=== PATIENT | male | born 1990 | race Caucasian/White ===

== ENCOUNTER 2016-10-31 05:48 | Inpatient (IN) ==
[2016-10-31] MEDS ORDERED: 0.9 % Sodium Chloride 1,000 ML IVC ONE ×2 (06:24→08:05)
[2016-10-31] MEDS ORDERED: Ondansetron 4 MG/2 ML VIAL IVP ONE (06:25)
[2016-10-31 06:52] LABS: Alanine Aminotransferase 184 Units/L (0-55); Albumin 4.9 g/dL (3.5-5.0); Albumin/Globulin Ratio 1.3 (1.1-2.2); Alkaline Phosphatase 85 Units/L (38-126); Aspartate Amino Transferase 118 Units/L (5-34); BUN/Creatinine Ratio 9 (6-26); Bilirubin,Direct 0.5 mg/dL (0.0-0.5); Bilirubin,Indirect 0.7 mg/dL (0.0-1.2); Bilirubin,Total 1.2 mg/dL (0.2-1.2); Blood Urea Nitrogen 29 mg/dL (8-26); Carbon Dioxide 18 mEq/L (19-29); Chloride 96 mEq/L (98-109); Globulin 3.8 g/dL (2.4-3.5); Glucose 111 mg/dL (70-99); Osmolality,Calculated 279 (280-300); Sodium 131 mEq/L (136-145); Total Protein 8.7 g/dL (6.0-8.3); eGFR For African Americans 29 (> 60); eGFR For Non-African Americans 24 (> 60)
[2016-10-31 07:09] LABS: Acetaminophen < 1.0 mcg/mL (10-30); Ethanol < 10 mg/dL (0-10); Salicylate < 5.0 mg/dL (15-30)
[2016-10-31] MEDS ORDERED: *HR* LORazepam 2 MG/ML VIAL IVP ONE (07:25)
[2016-10-31 08:15] LABS: Basophils # 0.1 K/mcL (0.0-0.2); Basophils % 0.4 %; Eosinophils % 0.1 %; Hematocrit 45.1 % (37.5-50.1); Hemoglobin 16.1 g/dL (12.9-16.9); Immature Granulocytes % 0.4 % (0-4); Immature Platelets 10.4 % (1.1-6.1); Lymphocytes # 2.7 K/mcL (0.6-4.6); Lymphocytes % 18.9 %; Mean Corpuscular HGB Conc 35.7 g/dL (31.6-35.5); Mean Corpuscular Hemoglobin 27.9 pg (28.0-33.3); Mean Platelet Volume 11.1 fL (9.4-12.4); Monocytes # 1.5 K/mcL (0.0-1.3); Monocytes % 10.5 %; Platelet Count 236 K/mcL (140-400); Red Blood Count 5.78 M/mcL (4.19-5.50); Red Cell Distribution Width 13.2 % (11.5-14.5); Segmented Neutrophils % 69.7 %
--- NOTE | 2016-10-31 09:32 | Emergency Department Note ---
START Narrative - START START: I examined this patient and my medical decision-making was reviewed with the BOOM STICK MAN/PA/Advanced Practice Nurse/Resident Physician. I agree with the documented findings, disposition and treatment plan as described except to the extent set forth below. Patient emergency department with abdominal pain and altered mental status. Patient called a friend because he is on abdominal pain. He was brought here. On my exam he is laying in bed sleeping with his legs drawn up to his chest. Plan. Patient had acute renal failure. Likely from his polysubstance abuse. We will admit to medicine. IV hydration.
--- NOTE | 2016-10-31 09:47 | Emergency Department Note ---
Disposition Clinical Impression: Abdominal pain, ARF (acute renal failure), Polysubstance abuse Disposition: Admitted As Inpatient Condition: Fair Referrals: NO,PCP [Primary Care Provider] - Forms: Work/School Release, ED Satisfaction Letter Time of Disposition: 10:34 General Adult HPI - General Chief complaint: ED Abdominal Pain Stated complaint: abdominal pain and back pain Time Seen by Provider: 10/31/16 06:23 Source: patient Mode of arrival: private vehicle Limitations: no limitations Nursing Notes Reviewed: Yes Vital Signs Reviewed: Yes - History of Present Illness HPI Narrative: 26-year-old male presents to the emergency department with multiple complaints. Patient states that he has been having intermittent abdominal pain, as well as currently being intoxicated on multiple substances. Patient states that last night/this morning he used methamphetamines, cocaine, Xanax, alcohol, marijuana and "made on something but are not really sure what else." He denies any chest pain or shortness of breath. He does have some mild agitation and anxiety. Patient states that he has been a long-standing drug abuser. Onset (ago): hour(s) Location: abdomen Radiation: abdomen Pain Severity: moderate, severe Pain Scale: 8 Quality: aching, dull Consistency: intermittent Improves with: nothing Worsens with: nothing Associated symptoms: Reports: fever/chills Treatments Prior to Arrival: none - Related Data Home Medications Medication Instructions Recorded Confirmed Unable To Obtain [Unable to Obtain] 10/31/16 10/31/16 Allergies Allergy/AdvReac Type Severity Reaction Status Date / Time No Known Allergies Allergy Verified 10/31/16 08:50 All systems ED: reviewed and negative except as stated. Constitutional: Denies: fever, chills Cardiovascular: Denies: chest pain Respiratory: Denies: dyspnea Gastrointestinal: Reports: abdominal pain. Denies: nausea, vomiting Musculoskeletal: Denies: back pain, neck pain Integumentary: Denies: rash, abrasion Neurological: Denies: headache Psychiatric: Reports: anxiety. Denies: depression, suicidal thoughts, homicidal thoughts, auditory hallucinations, visual hallucinations Past Medical History - Past Medical History Attestation: Yes The following information was validated with the patient. Source: patient, obtained from family, nursing notes reviewed Medical history: Reports: other - Social History Smoking Status: Current every day smoker Alcohol use: Reports: none Drug use: Reports: cocaine, other Physical Exam - General Limitations: no limitations General appearance: alert, in no apparent distress - Head Head exam: atraumatic, normocephalic, normal inspection - Eye Eye exam: Present: normal appearance, PERRL - Neck Neck exam: Present: normal inspection, full ROM, trachea midline - Chest Chest inspection: Present: normal inspection, symmetric chest wall rise - Respiratory Respiratory exam: Present: normal lung sounds bilaterally - Cardiovascular Cardiovascular exam: Present: regular rate, normal rhythm, normal heart sounds - Abdominal Exam Abdominal exam: Present: soft, Non-Tender, normal bowel sounds. Absent: distention, guarding, rebound, rigidity - Extremities Exam Extremities exam: Present: normal inspection, full ROM. Absent: tenderness, pedal edema - Expanded Lower Extremity Exam Gait: observed and normal - Back Exam Back exam: Present: normal inspection, full ROM. Absent: tenderness - Neurological Exam Neurological exam: Present: alert, oriented X3 - Psychiatric Psychiatric exam: Present: anxious. Absent: homicidal ideation, suicidal ideation - Skin Skin exam: Present: warm, dry, intact, normal color Course Course Narrative: Patient seems extremely anxious and is pacing around the room during my history and physical exam. - Reevaluation(s) Reevaluation #1: Patient resting comfortably after administration of 1 mg Ativan. Labs show acute renal failure. Second liter of fluids is currently being administered. Plan to admit to medicine with possible consult nephrology. Time: 09:49 Vital Signs Temperature 0 F L 10/31/16 05:53 Pulse Rate 0 10/31/16 05:53 Respiratory Rate 18 10/31/16 05:53 Blood Pressure 0/0 10/31/16 05:53 O2 Sat by Pulse Oximetry 0 10/31/16 05:53 Temperature 0 F L 10/31/16 05:53 Pulse Rate 83 10/31/16 10:05 Respiratory Rate 18 10/31/16 10:05 Blood Pressure 117/72 10/31/16 10:05 O2 Sat by Pulse Oximetry 100 10/31/16 10:05 Oxygen Delivery Oxygen Delivery Room Air Medical Decision Making - Lab Data Lab results reviewed: Yes I reviewed the patient's lab results. Result diagrams: 10/31/16 06:30 10/31/16 06:30 Lab Results 10/31/16 10/31/16 Range/Units 06:30 06:30 WBC 14.3 H (4.3-11.1) K/mcL RBC 5.78 H (4.19-5.50) M/mcL Hgb 16.1 (12.9-16.9) g/dL Hct 45.1 (37.5-50.1) % MCV 78.0 L (83.0-100.0) fL MCH 27.9 L (28.0-33.3) pg MCHC 35.7 H (31.6-35.5) g/dL RDW 13.2 (11.5-14.5) % Plt Count 236 (140-400) K/mcL MPV 11.1 (9.4-12.4) fL Immature Gran % 0.4 (0-4) % Seg Neutrophils % 69.7 % Lymphocytes % 18.9 % Monocytes % 10.5 % Eosinophils % 0.1 % Basophils % 0.4 % Neutrophils # 10.0 H (1.6-8.9) K/mcL Lymphocytes # 2.7 (0.6-4.6) K/mcL Monocytes # 1.5 H (0.0-1.3) K/mcL Eosinophils # 0.0 (0.0-0.6) K/mcL Basophils # 0.1 (0.0-0.2) K/mcL Immature Plt Fraction 10.4 H (1.1-6.1) % Sodium 131 L (136-145) mEq/L Potassium 4.0 (3.5-4.5) mEq/L Chloride 96 L (98-109) mEq/L Carbon Dioxide 18 L (19-29) mEq/L BUN 29 H (8-26) mg/dL Creatinine 3.18 H (0.72-1.25) mg/dL Est GFR ( Amer) 29 L (> 60) Est GFR (Non-Af Amer) 24 L (> 60) BUN/Creatinine Ratio 9 (6-26) Glucose 111 H (70-99) mg/dL Calculated Osmolality 279 L (280-300) Calcium 10.0 (8.6-10.8) mg/dL Total Bilirubin 1.2 (0.2-1.2) mg/dL Direct Bilirubin 0.5 (0.0-0.5) mg/dL Indirect Bilirubin 0.7 (0.0-1.2) mg/dL AST 118 H (5-34) Units/L ALT 184 H (0-55) Units/L Alkaline Phosphatase 85 (38-126) Units/L Serum Total Protein 8.7 H (6.0-8.3) g/dL Albumin 4.9 (3.5-5.0) g/dL Globulin 3.8 H (2.4-3.5) g/dL Albumin/Globulin Ratio 1.3 (1.1-2.2) Salicylates < 5.0 L (15-30) mg/dL Acetaminophen < 1.0 L (10-30) mcg/mL Ethyl Alcohol < 10 (0-10) mg/dL - Radiology Data Radiology results reviewed: Yes I reviewed the patient's radiology results.
[2016-10-31 11:01] LABS: Amphetamine Screen,Urine Positive ng/mL (Cutoff=1000); Barbiturate Screen,Urine Negative ng/mL (Cutoff=200); Benzodiazepines Screen,Urine Negative ng/mL (Cutoff=200); Cannabinoid Screen,Urine Negative ng/mL (Cutoff = 50); Cocaine Screen,Urine Positive ng/mL (Cutoff= 300); Opiate Screen,Urine Negative ng/mL (Cutoff=300); Phencyclidine Screen,Urine Negative ng/mL (Cutoff=25)
[2016-10-31 11:02] LABS: Bilirubin,Urine Negative (Negative); Blood,Urine Negative (Negative); Clarity,Urine Cloudy (Clear); Color,Urine Yellow (Yellow); Glucose,Urine (UA) Normal (Normal); Ketones,Urine Negative (Negative); Leukocyte Esterase,Urine Negative (Negative); Nitrite,Urine Negative (Negative); PH,Urine 5.5 pH Units (5.0-8.0); Protein,Urine Negative (Neg-Trace); Specific Gravity,Urine 1.012 (1.010-1.025); Urobilinogen,Urine Normal (Normal)
[2016-10-31 11:04] LABS: Bacteria,Urine None Seen per hpf (None-Few); Squamous Epithelial Cell,Urine Many per lpf (None-Few)
[2016-10-31] MEDS ORDERED: *HR* LORazepam 2 MG/ML VIAL IVP PRN (11:53)
--- NOTE | 2016-10-31 12:02 | Internal Med History&Physical ---
Date of Encounter: 10/31/16 Time of Encounter: 11:59 Assessment and Plan (1) Abdominal pain Current visit: Yes Status: Acute I will get to view x-ray looking for free air. He is not peritonitic on exam. He has some voluntary guarding. Qualifiers: Qualified Code(s): R10.9 - Unspecified abdominal pain (2) ARF (acute renal failure) Current visit: Yes Status: Acute 2L of NS were given. Continue NS 150 ml/h. Follow urine output. Renal ultrasound. I will also check CPK to look for rhabdomyolysis. Qualifiers: Qualified Code(s): N17.9 - Acute kidney failure, unspecified (3) Polysubstance abuse Current visit: Yes Status: Acute He admits to injection and snorting of cocaine and methamphetamine. Continuous telemetry monitoring. 12 lead electrocardiogram will be checked now. (4) Acute psychosis Current visit: Yes Status: Acute Due to amphetamines and cocaine. I will give the patients Ativan 1 mg IV Q2 hours as needed. Sitter will be present at bedside. psych evaluation on DC Internal Medicine - H&P: HPI Chief complaint: abdomial pain History of present illness: Mr. Dodson is a 26 year old male presents the emergency room today with the main complain of abdominal pain and confusion. Patient was behaving psychotic with delusions and hallucinations. He was restless agitated. He admitted to taking amphetamine and cocaine last night he usually takes them by injection and snorting. Patient has been also complaining of diffuse abdominal pain. No further history could be obtained given patient mental status. He denies any chest pain, shortness of breath. He denied any abdominal pain during my interview. He described his pain and spasms. No fevers chills. Past Med Surg Social Fam HX - Past Medical History Medical history: other Psychiatric history: no psych history - Social History Smoking Status: Current every day smoker Smokeless Tobacco Status: No Alcohol use: occasionally Drug use: cocaine, marijuana, methamphetamine, other - Family History Mother Hx Family Cardiac Disorders: Yes Internal Medicine - H&P: Meds Unable To Obtain [Unable to Obtain] 10/31/16 [History] Allergies No Known Allergies Allergy (Verified 10/31/16 08:50) All Systems PM: A 10-system review of systems was performed and is negative for pertinent findings except as documented above in the HPI. Review of systems: 10 point review of systems is negative except for HPI. - Constitutional Vitals: Temp Pulse Resp BP Pulse Ox 98.3 F 111 18 162/61 93 10/31/16 11:30 10/31/16 11:30 10/31/16 11:30 10/31/16 11:30 10/31/16 11:30 Exam: Gen.: patient is alert, restless cardiac: Tachycardic normal S1, S2, no additional sounds or murmurs chest: Clear to auscultation Abdomen: Soft, No tenderness No rebound lower extremity Lax calf muscles no swelling Neuro: no focal deficits Internal Med - H&P Results - Labs CBC & Chem 7: 10/31/16 06:30 10/31/16 06:30 Labs: Urine 10/31/16 Range/Units 10:48 Urine Color Yellow (Yellow) Urine Clarity Cloudy A (Clear) Urine pH 5.5 (5.0-8.0) pH Units Ur Specific [place] 1.012 (1.010-1.025) Urine Protein Negative (Neg-Trace) mg/dL Urine Glucose (UA) Normal (Normal) mg/dL
[2016-10-31] MEDS: Ondansetron 4 MG/2 ML VIAL IVP SCH ×2 (13:13→18:26)
[2016-10-31] MEDS: 0.9 % Sodium Chloride 1,000 ML IVC SCH ×2 (13:30→19:00)
[2016-10-31 14:35] LABS: Hepatitis B Surface Antigen Nonreactive (Nonreactive)
[2016-11-01] MEDS: Ondansetron 4 MG/2 ML VIAL IVP SCH ×4 (01:08→16:27)
[2016-11-01] MEDS: Nicotine 21 MG PATCH.TD24 TD SCH ×2 (01:09→08:39)
[2016-11-01] MEDS: 0.9 % Sodium Chloride 1,000 ML IVC SCH ×3 (02:50→16:26)
[2016-11-01 06:12] LABS: Basophils % 0.5 %; Eosinophils # 0.4 K/mcL (0.0-0.6); Eosinophils % 6.1 %; Hematocrit 37.7 % (37.5-50.1); Immature Granulocytes % 0.3 % (0-4); Lymphocytes # 2.4 K/mcL (0.6-4.6); Lymphocytes % 37.1 %; Mean Corpuscular HGB Conc 35.3 g/dL (31.6-35.5); Mean Corpuscular Hemoglobin 28.4 pg (28.0-33.3); Mean Corpuscular Volume 80.6 fL (83.0-100.0); Mean Platelet Volume 11.1 fL (9.4-12.4); Monocytes # 0.5 K/mcL (0.0-1.3); Monocytes % 7.5 %; Neutrophils # 3.1 K/mcL (1.6-8.9); Platelet Count 151 K/mcL (140-400); Red Blood Count 4.68 M/mcL (4.19-5.50); Red Cell Distribution Width 13.4 % (11.5-14.5); Segmented Neutrophils % 48.5 %
[2016-11-01 06:13] LABS: Hemoglobin 13.3 g/dL (12.9-16.9)
[2016-11-01 06:31] LABS: BUN/Creatinine Ratio 17 (6-26); Calcium 8.8 mg/dL (8.6-10.8); Carbon Dioxide 25 mEq/L (19-29); Chloride 107 mEq/L (98-109); Creatine Kinase 1766 Units/L (30-200); Glucose 98 mg/dL (70-99); Magnesium 2.1 mg/dL (1.6-2.6); Osmolality,Calculated 288 (280-300); Potassium 3.8 mEq/L (3.5-4.5); eGFR For African Americans > 60 (> 60); eGFR For Non-African Americans > 60 (> 60)
[2016-11-01 06:32] LABS: Blood Urea Nitrogen 14 mg/dL (8-26); Sodium 139 mEq/L (136-145)
[2016-11-01] MEDS ORDERED: *HR* LORazepam 2 MG/ML VIAL IVP PRN (07:45)
[2016-11-01] MEDS: Famotidine 20 MG/2 ML VIAL IVP SCH (08:39)
--- NOTE | 2016-11-01 11:23 | Internal Med Progress Note ---
Date of Encounter: 11/01/16 Time of Encounter: 11:25 - Assessment and plan (1) Abdominal pain Current Visit: Yes Status: Acute Assessment and plan: Abdomen is benign. X-ray shows no evidence of free air. Likely related to muscle spasms from cocaine and amphetamine abuse. Qualifiers: Qualified Code(s): R10.9 - Unspecified abdominal pain (2) ARF (acute renal failure) Current Visit: Yes Status: Acute Assessment and plan: Resolved. However CPK today is 1700. We will keep one more day for IV hydration. Qualifiers: Qualified Code(s): N17.9 - Acute kidney failure, unspecified (3) Polysubstance abuse Current Visit: Yes Status: Acute (4) Acute psychosis Current Visit: Yes Status: Acute Assessment and plan: Resolved. Appreciate psychiatry recommendations for possible outpatient follow- up and rehab. - Subjective Interval history: Patient seen and examined. He is alert oriented times 3. Conversing and appropriate. Kidney functions normalized. Denies any complaints. No abdominal pain. - Constitutional Vitals: Temp Pulse Resp BP Pulse Ox 97.8 F 74 14 117/71 99 11/01/16 10:43 11/01/16 10:43 11/01/16 10:43 11/01/16 10:43 11/01/16 10:43 Exam: Gen.: patient is alert oriented times 3 not in distress. Cardiac: normal S1 S2 no additional sounds or murmurs chest: fair air entry. no active wheezing. No crackles or bronchial breathing. abdomen: soft nontender nondistended normal bowel sounds neuro: no focal deficit Internal Medicine: Result - Labs CBC & Chem 7: 11/01/16 05:48 11/01/16 05:48 Labs: Short CBC 11/01/16 Range/Units 05:48 WBC 6.4 D (4.3-11.1) K/mcL Hgb 13.3 D (12.9-16.9) g/dL Hct 37.7 (37.5-50.1) % Plt Count 151 (140-400) K/mcL Neutrophils # 3.1 (1.6-8.9) K/mcL BMP 11/01/16 05:48 Sodium 139 D Potassium 3.8 Chloride 107 Carbon Dioxide 25 BUN 14 D Creatinine 0.84 D Glucose 98 Calcium 8.8 - Impressions Impressions Abdomen X-Ray 10/31/16 12:01 IMPRESSION: No acute findings in the abdomen. Specifically, there is no evidence of pneumoperitoneum. D/ / Dong Perkins MD / Dong Perkins MD Interpreting Provider: Dong Perkins MD Retroperitoneum Ultrasound 10/31/16 17:30 IMPRESSION: No evidence of hydronephrosis. D/ / Sam Garrett MD / Sam Garrett MD Interpreting Provider: Sam Garrett MD Consult Discharge Plan - Plan Referrals: NO,PCP [Primary Care Provider] -
--- NOTE | 2016-11-01 12:18 | Electrocardiograph Report ---
[place] [id number] Test Date: 2016-10-31 Pat Name: [facility] Department: 113 Room: [facility] Gender: M Predictive Maintenance Specialist: : 1990 Requested By: Steve Ceballos Order Number: [id number] Reading MD: Chelsea Lawson Measurements Intervals [place] Rate: 88 P: 74 MO: 145 QRS: -28 QRSD: 93 T: 57 QT: 375 QTc: 420 Interpretive Statements SINUS RHYTHM BORDERLINE LEFT AXIS DEVIATION Electronically Signed On 11-01-2016 12:16:14 EDT by Chelsea Lawson
[2016-11-01 13:06] LABS: Hepatitis A Antibody IgM Nonreactive (Nonreactive); Hepatitis B Core IgM Nonreactive (Nonreactive)
--- NOTE | 2016-11-01 15:03 | Psychiatry Progress Note ---
Date of Encounter: 11/01/16 Time of Encounter: 14:00 Subjective Interval history: Patient is a 26 years old male admitted to the medical service for treatment of abdominal pain and acute renal failure and positive intoxication with amphetamine and cocaine. Psychiatric consultation was requested to recommend treatment for the patient's on an outpatient basis. Review of the record and interviewing the patient supports longer history of substance abuse over 10 years previous to rehabilitation in the last 6 months and noncompliance with sobriety. Patient denied any previous psychiatric history or treatment. Patient is alert and oriented and there is no evidence of any mood or psychotic symptoms. Objective: Exam Patient orientation: Yes Person, Yes Time, Yes Place Level of alertness: Alert Patient appearance: Appropriate, Well Groomed Behavior: calm, cooperative Psychomotor activity: Normal Eye contact: Maintains Eye Contact Mood description: Euthymic/stable Affect description: congruent with mood, full range Speech pattern: Normal rate, Normal rhythm, Normal tone Speech volume: Normal Thought process: Linear, Goal Oriented Thought content: No Suicidal ideation, No Homicidal ideation, No Overt delusions Perceptual disturbances: No Auditory hallucinations, No Visual hallucinations Judgment: Fair Insight: Partial Results - Vital Signs Vital Signs: Temp Pulse Resp BP Pulse Ox 98.1 F 88 15 96/52 98 11/01/16 14:57 11/01/16 14:57 11/01/16 14:57 11/01/16 14:57 11/01/16 14:57 - Labs Labs: Laboratory Results - last 24 hr 10/31/16 11/01/16 11/01/16 12:06 05:48 05:48 WBC 6.4 D RBC 4.68 Hgb 13.3 D Hct 37.7 MCV 80.6 L MCH 28.4 MCHC 35.3 RDW 13.4 Plt Count 151 MPV 11.1 Immature Gran % 0.3 Seg Neutrophils % 48.5 Lymphocytes % 37.1 Monocytes % 7.5 Eosinophils % 6.1 Basophils % 0.5 Neutrophils # 3.1 Lymphocytes # 2.4 Monocytes # 0.5 Eosinophils # 0.4 Basophils # 0.0 Sodium 139 D Potassium 3.8 Chloride 107 Carbon Dioxide 25 BUN 14 D Creatinine 0.84 D Est GFR ( Amer) > 60 Est GFR (Non-Af Amer) > 60 BUN/Creatinine Ratio 17 Glucose 98 Calculated Osmolality 288 Calcium 8.8 Magnesium 2.1 Creatine Kinase 1766 H Hepatitis A IgM Ab Nonreactive Hep B Core IgM Ab Nonreactive - Impressions ITS Impressions Abdomen X-Ray 10/31/16 12:01 IMPRESSION: No acute findings in the abdomen. Specifically, there is no evidence of pneumoperitoneum. D/ / Dong Perkins MD / Dong Perkins MD Interpreting Provider: Dong Perkins MD Retroperitoneum Ultrasound 10/31/16 17:30 IMPRESSION: No evidence of hydronephrosis. D/ / Sam Garrett MD / Sam Garrett MD Interpreting Provider: Sam Garrett MD Assessment and Plan (1) Polysubstance abuse Current visit: Yes Status: Acute Plan: Continue hospitalization, Close observation, Suicide Precautions per unit protocol, Encourage participation in unit milieu, Group Therapy, Monitor sleep, Monitor appetite Additional Plan: Patient is stable from psychiatric standpoint, he may benefit from referral to drug rehabilitation service as an outpatient or inpatient as available. Resources will be provided by social work. Consult Discharge Plan - Plan Referrals: NO,PCP [Primary Care Provider] -
[2016-11-01 21:36] LABS: Hepatitis C Virus Antibody Reactive (Nonreactive)
[2016-11-02] MEDS: Ondansetron 4 MG/2 ML VIAL IVP SCH ×3 (00:43→12:27)
[2016-11-02 03:53] LABS: BUN/Creatinine Ratio 11 (6-26); Blood Urea Nitrogen 9 mg/dL (8-26); Calcium 8.2 mg/dL (8.6-10.8); Carbon Dioxide 24 mEq/L (19-29); Chloride 112 mEq/L (98-109); Creatine Kinase 1234 Units/L (30-200); Glucose 122 mg/dL (70-99); Magnesium 1.6 mg/dL (1.6-2.6); Osmolality,Calculated 294 (280-300); Potassium 3.5 mEq/L (3.5-4.5); Sodium 142 mEq/L (136-145); eGFR For African Americans > 60 (> 60); eGFR For Non-African Americans > 60 (> 60)
[2016-11-02] MEDS: 0.9 % Sodium Chloride 1,000 ML IVC SCH ×2 (05:50→05:52)
[2016-11-02 07:10] VITALS: BP 126/67
[2016-11-02] MEDS: Nicotine 21 MG PATCH.TD24 TD SCH (08:18)
[2016-11-02] MEDS: Famotidine 20 MG/2 ML VIAL IVP SCH (08:18)
--- NOTE | 2016-11-02 11:20 | Discharge Summary ---
Date of Encounter: 11/02/16 Time of Encounter: 11:17 - Discharge Diagnosis (1) Toxic encephalopathy Priority: Secondary Status: Acute Comments: Present on admission, was secondary to polysubstance abuse includ cocaine and methamphetamine. Currenly resolvd (2) Rhabdomyolysis Priority: Secondary Status: Acute Qualifiers: Rhabdomyolysis type: non-traumatic Qualified Code(s): M62.82 - Rhabdomyolysis (3) Abdominal pain Priority: Secondary Status: Acute Qualifiers: Abdominal location: generalized Qualified Code(s): R10.84 - Generalized abdominal pain (4) ARF (acute renal failure) Priority: Primary Status: Acute Qualifiers: Acute renal failure type: unspecified Qualified Code(s): N17.9 - Acute kidney failure, unspecified (5) Polysubstance abuse Priority: Secondary Status: Acute (6) Acute psychosis Priority: Secondary Status: Acute - Discharge Medications Home Medications: Unable To Obtain [Unable to Obtain] 10/31/16 [History] Allergies/Adverse Reactions: Allergies No Known Allergies Allergy (Verified 10/31/16 08:50) Procedures/tests Complete & Pending: Procedures Performed prior 72 hours Category Date Time Status retroperitoneal ultrasound - limited [US Exams 10/31/16 17:30 Completed retroperitoneal limited] [US] Routine EKG [ECG 12 lead ECG] [ECG] Stat Y 10/31/16 11:56 Completed Date of admission: 10/31/16 11:49 Primary care physician: PCP NO Consults: 10/31/16 15:01 Consult to Psychiatry [CONS] Routine Consulting Provider: Psychiatry Julia Reason for Consult: polysubstance abuse Call Completed: No 11/01/16 09:28 Consult to Cocktail Lounge Manager [CONS] Routine Reason for SW Consult: would like to speak with you about rehab resources and has questions about his current insurance - Patient Status Disposition: Home, Self-Care Condition: Fair Functional capacity at discharge: independent ambulation Overall status at discharge: patient is back to baseline - Discharge Instructions Follow Up With: NO,PCP [Primary Care Provider] - Additional Instructions: Keep good oral hydration. Avoid all recreational drug use. Refrain from smoking cigarettes. - Diet and Activity Activity: increase activity as tolerated Diet: advance to your usual diet Hospital course: Mr. Dodson is a 26 year old male who was brought to the hospital for evaluation of abdominal pain and confusion. Upon initial evaluation he was noted to have psychotic features with delusions and hallucinations. He was restless and agitated. He admitted to taking amphetamine and cocaine the night prior to his presentation. He reported taking these drugs by injection and snorting. He had also been complaining of abdominal pain and bilateral leg cramping. His initial workup was pertinent for elevated creatinine of 3.6 and elevated CPK. He was admitted to the medical service for treatment of acute renal failure and rhabdomyolysis likely drug-induced secondary to polysubstance abuse. He received treatment with IV fluids and his CPK trended down the next day but remained elevated at 1800. His creatinine came down to normal. Today his CPK continued to trend down at 1200 and his creatinine remains within the normal range. He reports that his abdominal pain and leg cramping have resolved and he has been able to tolerate a diet. He was evaluated by psychiatry for his initial psychotic features which were thought to be related to polysubstance abuse and he was cleared for discharge home. He was evaluated by the social professionals and offered resources for outpatient detox. Today he is back to baseline and will be discharged home. I have advised smoking cessation and avoidance of all recreational drug use. - Time Spent with Patient Total time spent providing and/or coordinating discharge services: Greater than 30 minutes - Constitutional Vitals: Temp Pulse Resp BP Pulse Ox 98.6 F 70 14 126/67 98 11/02/16 07:06 11/02/16 07:06 11/02/16 07:06 11/02/16 07:06 11/02/16 08:20 General appearance: Present: A&O X 3 - Respiratory Respiratory exam: Present: CTAB. Absent: accessory muscle use, rales, rhonchi, wheezes - Cardiovascular Cardiovascular exam: Present: RRR, +S1, +S2. Absent: diastolic murmur, gallop, rubs, systolic murmur - GI/Abdominal GI/Abdominal exam: Present: normal bowel sounds, soft, no peritoneal signs. Absent: distended, tenderness
== END 2016-11-02 15:02 | disposition home or self-care (01) | DRG 917 ==
LOC: EMEROO 05:48 → 3BNU 05:48 → SUATTDRO 11:49 → 3BNU 11-01 23:54
PROVIDERS: ADMIT Hospitalist; ATTEND Internal Medicine